=== PATIENT | male | born 1960 | race Caucasian/White ===

== ENCOUNTER 2025-07-06 10:21 | Outpatient (CLI) | payer MEDICARE ==
--- NOTE | 2025-07-06 13:17 | RADIOLOGY REPORT ---
PROCEDURE: MR MRI C SPINE Indication: CERVICALGIA COMPARISON: None TECHNIQUE: Multiplanar multisequence images of the the cervical spine are obtained. FINDINGS: The cervical vertebral body heights are maintained. Moderate to severe multilevel disc space narrowing and desiccation. Marrow edematous changes at C6/7. No prevertebral edema. C2-3: Central disc osteophyte complex extending 3 mm posteriorly. No spinal canal stenosis. Severe left, mild right neural foraminal stenosis secondary to facet and uncovertebral hypertrophy. C3-4: Disc osteophyte complex narrowing the ventral and dorsal CSF spaces. Thecal sac measures 9 mm AP. Mild spinal canal stenosis. Moderate left and [id number] right neural foraminal stenosis secondary to facet and uncovertebral hypertrophy. C4-5: Disc osteophyte complex effacing the ventral and dorsal CSF spaces. Thecal sac measures 7 mm AP. Moderate spinal canal stenosis. Severe right, moderate left neural foraminal stenosis secondary to facet and uncovertebral hypertrophy. C5-6: Disc osteophyte complex narrowing the ventral and dorsal CSF spaces. Thecal sac measures 9 mm AP. Mild spinal canal stenosis. Kubi-[id number]-lbldyzgr left, mild right neural foraminal stenosis. C6-7: Disc osteophyte complex narrowing the ventral and dorsal CSF spaces. Thecal sac measures 7 mm AP. Moderate spinal canal stenosis. Severe right and moderate to severe left neural foraminal stenosis. C7-T1: Small disc osteophyte complex. No spinal canal stenosis. Moderate right and [id number]-tutotgoi left neural foraminal stenosis. IMPRESSION: Moderate to severe cervical degenerative disc disease. Moderate spinal canal stenosis at C4-5, C6-7. Mild spinal canal stenosis C3-4, C5-6. Multilevel moderate to severe neural foraminal stenosis as described
== END 2025-07-06 23:59 | disposition home or self-care (01) ==
LOC: MRI02 10:21
PROVIDERS: ATTEND Chiropractor
DX: M99.01 Segmental and somatic dysfunction of cervical region (principal); M79.10 Myalgia, unspecified site; M99.02 Segmental and somatic dysfunction of thoracic region; M99.03 Segmental and somatic dysfunction of lumbar region; M99.04 Segmental and somatic dysfunction of sacral region; M99.05 Segmental and somatic dysfunction of pelvic region; M54.2 Cervicalgia; M54.50 Low back pain, unspecified; M54.16 Radiculopathy, lumbar region; M54.12 Radiculopathy, cervical region; M48.03 Spinal stenosis, cervicothoracic region
CPT/HCPCS: 72141